=== PATIENT | male | born 1970 | race Native Hawaiian/Other Pacific Islander ===

== ENCOUNTER 2021-01-08 13:35 | Outpatient (CLI) | payer OTHER | END 2021-01-08 23:02 | disposition home or self-care (01) | LOC: US 13:35 | PROVIDERS: ATTEND Nurse Practitioner Family | DX: R22.2 Localized swelling, mass and lump, trunk (principal); M25.512 Pain in left shoulder ==

== ENCOUNTER 2021-02-10 16:25 | Outpatient (CLI) | payer OTHER | END 2021-02-10 23:59 | disposition home or self-care (01) | LOC: RAD 16:25 | PROVIDERS: ATTEND Nurse Practitioner Family | DX: M79.671 Pain in right foot (principal) ==

== ENCOUNTER 2022-05-10 15:23 | Emergency (ER) | payer OTHER ==
[~2022-05-10] VITALS: Ht 165.1 cm; Wt 68.0 kg
[2022-05-10 15:30] VITALS: TEMP 98
[2022-05-10 17:30] VITALS: BP 118/80
== END 2022-05-10 17:30 | disposition home or self-care (01) ==
LOC: ED 15:23
DX: S09.8XXA Other specified injuries of head, initial encounter (principal); S01.01XA Laceration without foreign body of scalp, initial encounter; W22.8XXA Striking against or struck by other objects, initial encounter; Y93.H1 Activity, digging, shoveling and raking; Y92.89 Other specified places as the place of occurrence of the external cause
CPT/HCPCS: 99283; J1885

== ENCOUNTER 2023-09-13 16:40 | Outpatient (CLI) | payer OTHER | END 2023-09-13 19:30 | disposition home or self-care (01) | LOC: RAD 16:40 | PROVIDERS: ATTEND Nurse Practitioner Family | DX: M54.51 Vertebrogenic low back pain (principal) ==